=== PATIENT | female | born 1995 | race American Indian/Alaskan Native ===

== ENCOUNTER 2019-12-16 13:07 | Outpatient (CLI) | payer BC, OTHER ==
[2019-12-16 13:38] VITALS: BP 115/64
[2019-12-16 14:43] LABS: Bilirubin,Urine NEG (Negative); Blood,Urine NEG (Negative); Color,Urine Straw (Yellow); Protein,Urine <15 mg/dL mg/dL (Negative); Urobilinogen,Urine < 2.0 mg/dL (<2.0)
== END 2019-12-16 15:39 | disposition home or self-care (01) ==
LOC: TRG 13:07 → APU 13:17 → TRG 15:39
PROVIDERS: ATTEND Obstetrics & Gynecology
DX: O26.892 Other specified pregnancy related conditions, second trimester (principal); R10.9 Unspecified abdominal pain; Z3A.27 27 weeks gestation of pregnancy
CPT/HCPCS: 59025; 81001

== ENCOUNTER 2020-01-16 18:21 | Outpatient (CLI) | payer BC, OTHER ==
[2020-01-16 19:03] VITALS: BP 118/60
[2020-01-16] MEDS ORDERED: LACTATED RINGERS 1,000 ML IV ONE (19:25)
[2020-01-16 20:52] LABS: Bilirubin,Urine NEG (Negative); Blood,Urine SM (Negative); Color,Urine Yellow (Yellow); Mucus,Urine FEW /HPF; Protein,Urine <15 mg/dL mg/dL (Negative)
== END 2020-01-16 21:50 | disposition home or self-care (01) ==
LOC: TRG 18:21 → APU 18:23 → TRG 21:50
PROVIDERS: ATTEND Obstetrics & Gynecology
DX: O47.03 False labor before 37 completed weeks of gestation, third trimester (principal); Z3A.32 32 weeks gestation of pregnancy
CPT/HCPCS: 59025; 81001; 87086

== ENCOUNTER 2020-02-06 18:47 | Outpatient (CLI) | payer BC, OTHER ==
[2020-02-06] MEDS ORDERED: ACETAMINOPHEN 500 MG TAB PO ONE (19:24)
[2020-02-06 19:27] VITALS: BP 122/65
[2020-02-06] MEDS ORDERED: LACTATED RINGERS 500 ML IV ONE (20:08)
[2020-02-06 20:19] LABS: Bilirubin,Urine NEG (Negative); Blood,Urine NEG (Negative); Color,Urine Yellow (Yellow); Mucus,Urine 3+ /HPF
== END 2020-02-06 21:40 | disposition home or self-care (01) ==
LOC: TRG 18:47 → APU 18:48 → TRG 21:40
PROVIDERS: ATTEND Obstetrics & Gynecology
DX: O26.893 Other specified pregnancy related conditions, third trimester (principal); R10.2 Pelvic and perineal pain; Z3A.35 35 weeks gestation of pregnancy
CPT/HCPCS: 81001

== ENCOUNTER 2020-02-10 17:29 | Outpatient (CLI) | payer BC, OTHER ==
[2020-02-10] MEDS ORDERED: LACTATED RINGERS 1,000 ML IV SCH (18:15)
[2020-02-10 18:35] VITALS: BP 134/69
[2020-02-10 18:49] LABS: Bilirubin,Urine NEG (Negative); Blood,Urine NEG (Negative); Color,Urine Yellow (Yellow); Mucus,Urine FEW /HPF; Protein,Urine <15 mg/dL mg/dL (Negative); Urobilinogen,Urine < 2.0 mg/dL (<2.0)
--- NOTE | 2020-02-10 19:40 | Event Note ---
Date: 02/10/20 Patient presented to triage with complaints of pelvic pain and irregular contractions after having intercourse this afternoon. Patient had reactive tracing with no contractions during observation in triage and the cervix only half a centimeter dilated. Patient was discharged with labor cautions.
== END 2020-02-10 19:42 | disposition home or self-care (01) ==
LOC: TRG 17:29 → APU 17:30 → TRG 19:42
PROVIDERS: ATTEND Obstetrics & Gynecology
DX: O26.893 Other specified pregnancy related conditions, third trimester (principal); R10.9 Unspecified abdominal pain; Z3A.35 35 weeks gestation of pregnancy
CPT/HCPCS: 59025; 81001

== ENCOUNTER 2020-02-12 23:39 | Outpatient (CLI) | payer BC, OTHER ==
[2020-02-13 00:03] VITALS: BP 118/71
[2020-02-13] MEDS ORDERED: LACTATED RINGERS 1,000 ML IV ONE (00:10)
[2020-02-13] MEDS ORDERED: ACETAMINOPHEN 500 MG TAB PO ONE (00:48)
== END 2020-02-13 03:15 | disposition home or self-care (01) ==
LOC: TRG 23:39 → APU 23:41 → TRG 02-13 03:15
PROVIDERS: ATTEND Obstetrics & Gynecology
DX: O47.03 False labor before 37 completed weeks of gestation, third trimester (principal); Z3A.30 30 weeks gestation of pregnancy
CPT/HCPCS: 59025